=== PATIENT | female | born 1990 | race Caucasian/White ===

== ENCOUNTER 2016-08-11 00:01 | Inpatient (IN) | payer BC, OTHER ==
[2016-08-11] MEDS ORDERED: PITOCIN ONE (00:18)
[2016-08-11] MEDS ORDERED: D5LR 1000ML W PITOCIN 10 U/L 1,000 ML IV ONE (00:18)
[2016-08-11] MEDS ORDERED: FENTANYL INJ 100 mcg ONE (00:18)
[2016-08-11] MEDS ORDERED: D5 1/2 NS 1000ML W PITOCIN 20 U/L 1,000 ML IV ONE (00:19)
[2016-08-11] MEDS ORDERED: D5 1/2 NS 1000 ML 1,000 ML IV ONE (00:19)
[2016-08-11] MEDS ORDERED: NAROPIN EPIDURAL 0.2% + FENTANYL 90MCG 60 ML EPI ONE (00:19)
[2016-08-11] MEDS ORDERED: PITOCIN IVP ONE (00:36)
[2016-08-11] MEDS ORDERED: PHENERGAN INJ 25 MG IV PRN ×3 (00:36→06:16)
[2016-08-11] MEDS ORDERED: MORPHINE SULFATE INJ 2 MG IVP PRN (00:36)
[2016-08-11] MEDS ORDERED: PITOCIN 10 UNITS in D5 LR 1000 ML 1,000 ML IV PRN (00:36)
[2016-08-11] MEDS ORDERED: REGLAN INJ 10 MG VIAL IVP PRN ×2 (00:36→06:16)
[2016-08-11] MEDS ORDERED: NUBAIN INJ 200 MG VIAL MULTIDOSE IVP PRN (00:36)
[2016-08-11] MEDS ORDERED: D5 1/2 NS 1000 ML 1,000 ML IV SCH (01:00)
[2016-08-11 01:03] LABS: BASOPHILS # (AUTO) 0.1 X10^3/uL (0.0-0.1); BASOPHILS % (AUTO) 0.3 % (0.2-1.0); EOSINOPHILS # (AUTO) 0.5 x10^3/uL (0.0-0.2); EOSINOPHILS % (AUTO) 3.2 % (0.9-2.9); HEMATOCRIT 34.1 % (36.0-47.0); HEMOGLOBIN 11.4 g/dL (12.0-16.0); LYMPHOCYTES # (AUTO) 3.4 X10^3/uL (1.3-2.9); LYMPHOCYTES % (AUTO) 19.7 % (21.0-51.0); MEAN CORPUSCULAR HEMOGLOBIN 26.8 pg (27.0-34.0); MEAN CORPUSCULAR HGB CONC 33.4 g/dL (33.0-35.0); MEAN CORPUSCULAR VOLUME 80.4 fL (80.0-100.0); MEAN PLATELET VOLUME 7.7 fL (7.4-11.0); MONOCYTES # (AUTO) 1.2 x10^3/uL (0.3-0.8); MONOCYTES % (AUTO) 6.9 % (0.0-13.0); NEUTROPHILS # (AUTO) 11.9 x10^3/uL (2.2-4.8); NEUTROPHILS % (AUTO) 69.9 % (42.0-75.0); PLATELET COUNT 308 X10^3/uL (150.0-450.0); RED BLOOD COUNT 4.24 X10^6/uL (3.5-5.4); RED CELL DISTRIBUTION WIDTH 13.9 % (11.6-16.5)
[2016-08-11 01:10] LABS: BLOOD UREA NITROGEN 3 mg/dL (7-18); CALCIUM 8.3 mg/dL (8.5-10.1); CHLORIDE 105 mmol/L (98-107); CREATININE 0.65 mg/dL (0.55-1.02); GLUCOSE 102 mg/dL (65-99); SODIUM 139 mmol/L (136-145); eGFR BLACK RACES > 60 (>60); eGFR NON BLACK RACES > 60 (>60)
[2016-08-11] MEDS ORDERED: FENTANYL INJ 100 mcg EPI ONE (01:32)
[2016-08-11] MEDS ORDERED: LR 1000 ML IV 1,000 ML IV ONE (01:33)
[2016-08-11] MEDS ORDERED: NAROPIN EPIDURAL 0.2% 60 ML with FENTANYL INJ 100 mcg 90 MCG IVP SCH ×2 (02:00)
[2016-08-11] MEDS ORDERED: NUBAIN INJ 10 ONE (02:00)
[2016-08-11 03:04] LABS: BILIRUBIN,URINE NEGATIVE (NEGATIVE); BLOOD/HEMOGLOBIN,URINE 2+ (NEGATIVE); GLUCOSE, URINE NEGATIVE (NEGATIVE); KETONES,URINE NEGATIVE (NEGATIVE); LEUKOCYTE ESTERASE ,URINE NEGATIVE (NEGATIVE); NITRITES,URINE NEGATIVE (NEGATIVE); PROTEIN,URINE NEGATIVE (NEGATIVE); UROBILINOGEN,URINE NORMAL (NORMAL)
[2016-08-11 03:08] LABS: APPEARANCE,URINE CLEAR (CLEAR); COLOR,URINE YELLOW (YELLOW); SQUAMOUS EPITHELIAL CELL,UR RARE /HPF (NEGATIVE)
[2016-08-11 03:09] LABS: BACTERIA,URINE TRACE /HPF (NEGATIVE); CALCIUM OXALATE CRYSTALS,UR FEW /HPF (NEGATIVE)
--- NOTE | 2016-08-11 03:43 | DR.OB ---
OB Quick Note - Assessment/Plan Assessment/Plan: L&D 08/11/16 at 3:40am Pitocin=10mu/min. S-No complaint. s/p epidural. O-Afebrile,VSS [id number] with good LTV, +accel, no decel. CTX=q 1 1/2 to 2 min., about 45-55mmHg CVX=5cm/90%/-1 A-IUP at 38 2/7 weeks with SROM for induction P-Cont. pitocin induction Anticipate
[2016-08-11] MEDS ORDERED: MOTRIN TAB 800 MG PO PRN (05:29)
--- NOTE | 2016-08-11 05:29 | DR.OB ---
OB Quick Note - Assessment/Plan Assessment/Plan: Delivery Note STREET INSPECTOR 08/11/16 at 5:20am Patient complete and pushing. Head delivered over intact perineum. No nuchal cord. Nose and mouth bulb suctioned. Body delivered over intact perineum. Cord clamped x 2 and cut. handed to attendant. Cord sent for gases but cord noted to be short. Placenta delivered spontaneously / intact / 3 vessel cord. No CVX / vaginal / perineal tears. Viable female infant, VTX/OA, wt=7'14 " and 10/10, stable to NBN. Mother stable to RR. [id number].
[2016-08-11] MEDS ORDERED: D5 1/2 NS 1000 ML 1,000 ML with PITOCIN 20 UNITS IV SCH ×2 (06:00)
[2016-08-11] MEDS ORDERED: NAROPIN EPIDURAL 0.2% 60 ML with FENTANYL INJ 100 mcg 90 MCG EPI SCH ×2 (06:00)
[2016-08-11] MEDS ORDERED: DERMOPLAST SPRAY TOP PRN (06:16)
[2016-08-11] MEDS ORDERED: AMBIEN PO PRN (06:16)
[2016-08-11] MEDS ORDERED: ADACEL TDaP IM ONE (06:16)
[2016-08-11] MEDS ORDERED: MILK OF MAGNESIA PO PRN (06:16)
[2016-08-11] MEDS: PRENATAL PLUS PO SCH (08:25)
[2016-08-11] MEDS: ZANTAC PO SCH ×2 (08:26→21:23)
[2016-08-11] MEDS: MOTRIN TAB 800 MG PO PRN (13:13)
[2016-08-11] MEDS: D5 1/2 NS 1000 ML 1,000 ML with PITOCIN 20 UNITS IV SCH ×4 (14:37→22:36)
[2016-08-12] MEDS: MOTRIN TAB 800 MG PO PRN (03:00)
[2016-08-12 05:21] LABS: HEMATOCRIT 35.8 % (36.0-47.0); HEMOGLOBIN 11.6 g/dL (12.0-16.0)
[2016-08-12] MEDS: D5 1/2 NS 1000 ML 1,000 ML with PITOCIN 20 UNITS IV SCH ×2 (05:38)
[2016-08-12] MEDS ORDERED: DEPO-PROVERA CONTRACEPTIVE INJ IM ONE (07:34)
[2016-08-12] MEDS: PRENATAL PLUS PO SCH (08:20)
[2016-08-12] MEDS: ZANTAC PO SCH (08:20)
[2016-08-12 08:51] VITALS: BP 126/79
== END 2016-08-12 12:28 | disposition home or self-care (01) | DRG 775 ==
LOC: LD 00:01 → MED/SURG 05:30
PROVIDERS: ADMIT Specialist; ATTEND Specialist
PROC: 10E0XZZ Delivery of Products of Conception, External Approach (ICD-10-PCS; principal; 2016-08-11)
PROC: 00HU33Z Insertion of Infusion Device into Spinal Canal, Percutaneous Approach (ICD-10-PCS; 2016-08-11)
PROC: 3E0234Z Introduction of Serum, Toxoid and Vaccine into Muscle, Percutaneous Approach (ICD-10-PCS; 2016-08-11)
DX: O23.33 Infections of other parts of urinary tract in pregnancy, third trimester (principal); Z37.0 Single live birth; Z3A.38 38 weeks gestation of pregnancy; Z23 Encounter for immunization
CPT/HCPCS: 09167; 36415; 80048; 81001; 85014; 85018; 85025; 86592; 86850; 86900; 86901; A4216; A4222; S0197; J1050; J2300; J2590; J2765; J3010; J7042; J7120

== ENCOUNTER → 2017-03-16 | Outpatient (CLI) | payer BC ==
--- NOTE | 2017-03-16 15:46 | RAD ---
Examination: Left hand, three views History: Trauma Findings: There is a transverse undisplaced fracture involving the base of the distal phalanx, 4th fi nger. There is an additional oblique fracture involving the distal 2/3 set of the middle phalanx, taylor e digit. Joint spaces appear uninvolved. No gross displacement or deformity is noted. The expected so ft tissue swelling is present. Impression: Minimally-deforming fractures involving middle and distal phalanges, left 4th digit. Reported By:
== END | disposition home or self-care (01) | DRG 556 ==
LOC: RAD 15:14
PROVIDERS: ATTEND Nurse Practitioner Family
DX: M79.642 Pain in left hand (principal); S62.665A Nondisplaced fracture of distal phalanx of left ring finger, initial encounter for closed fracture; S62.655A Nondisplaced fracture of middle phalanx of left ring finger, initial encounter for closed fracture; X58.XXXA Exposure to other specified factors, initial encounter
CPT/HCPCS: 73130

== ENCOUNTER → 2017-03-26 | Outpatient (CLI) | payer BC ==
--- NOTE | 2017-03-26 10:57 | RAD ---
Examination: Left hand, three views History: Follow up fractures Comparison reference: 03/16/2017 Findings: Undisplaced fractures again noted involving the middle and distal phalanges of the 4th fing er. There is no evidence for callus formation, periosteal new bone or new deformity. Impression: Stable appearance of subacute fractures left 4th digit. Reported By:
== END ==
LOC: RAD 09:55
PROVIDERS: ATTEND Specialist
DX: S62.605A Fracture of unspecified phalanx of left ring finger, initial encounter for closed fracture (principal); X58.XXXA Exposure to other specified factors, initial encounter
CPT/HCPCS: 73130

== ENCOUNTER 2017-06-08 07:48 | Emergency (ER) | payer BC ==
[2017-06-08 07:56] VITALS: BP 116/75; BMI 23.0
--- NOTE | 2017-06-08 08:10 | DR.GENAD ---
HPI - PCP Primary Care Physician: keeley - HPI Comment HPI Comment: WORSE THIS AN. NAUSEATED AND HAVING PRESSURE IN THEBLADDER AREA. - Complaint/Symptoms Chief Complaint Doctors Comments: URINARY DISCOMFORT TIMES ONE DAY. Chief Complaint:: pt stated she has been having pelvic pain and trouble urinating since last night. has a iud inplace since last year. she stated it feels like a contraction. - Nurses notes reviewed Nurses Notes Review: Yes - Source History Provided: Patient - Mode of Arrival Mode of Arrival: Ambulatory - Timing Onset of Chief Complaint: 06/07/17 Came on: Suddenly (u) - Duration Duration: Constant Duration: Days - Severity Severity: Moderate PMH - PMH Past Medical History: No Past Medical History: Kidney Stones Past Surgical History: Yes Surgical History: Ortho Surgery - Family History History of Family Medical Conditions: Yes Family Medical History: [place], Hypertension - Social History Does patient currently use any type of tobacco product: No Have you used tobacco products in the last 12 months: No Type of Tobacco Use: None Does any household member use tobacco: No Alcohol Use: None Do you use any recreational Drugs:: No Lives With: Family Lives Where: Home - infectious screening In the last 2 months have you had wt loss of >10#?: NO Have you had fever, night sweats or hemotysis?: No Have you traveled outside the country in the last 6 months?: No Isolation: Standard ROS - Review of Systems Constitutional: No Symptoms Reported Eyes: No Symptoms Reported ENTM: No Symptoms Reported Respiratoy: No Symptoms Reported Cardiovascular: No Symptoms Reported Gastrointestinal/Abdominal: Abdominal Pain (BLADDERPRESSURE.), Nausea Genitourinary: Dysuria Neurological: No Symptoms Reported Musculoskeletal: No Symptoms Reported Integumentary: No Symptoms Reported Hematologic/Lymphatic: No Symptoms Reported Endocrine: No Symptoms Reported All Other Systems: Reviewed and Negative PE - Vital Signs Vitals: Temperature 98.3 F Pulse Rate 80 Respiratory Rate 16 Blood Pressure [Right Arm] 115/73 Blood Pressure [Left Arm] 126/79 Blood Pressure [Left Radial 133/76 Artery] Blood Pressure 116/75 O2 Sat by Pulse Oximetry 98 - General Limitations: No Limitations - Head Head Exam: Normal Inspection - Eyes Eye exam: Normal Appearance - ENT ENT Exam: Normal Exam External Ear Exam: Normal External Inspection TM/Canal Exam: Bilateral Normal Nose Exam: Normal Nose Exam Mouth Exam: Normal Inspection Throat Exam: Normal Inspection - Neck Neck Exam: Normal Inspection - Chest Chest Inspection: Symmetric Chest Wall Rise - Respiratory Respiratory Exam: Normal Lung Sounds Bilat Respiratory Exam: Bilateral Clear to Auscultation - Cardiovascular Cardiovascular Exam: Regular Rate, Normal Rhythm, Normal Heart Sounds - Abdominal Exam Abdominal Exam: Normal Bowel Sounds, Soft. negative: Tenderness - Extremities Extremities Exam: Normal Inspection - Back Back Exam: Normal Inspection - Neurologic Neurological Exam: Alert, Oriented X3 - Psychiatric Psychiatric Exam: Normal Affect, Normal Mood - Skin Skin Exam: Normal Color MDM - Differential Diagnosis Differential Diagnosis: UTI, KIDNEY STONE. Course - Treatment Treatment: SEE ORDERS. - Education/Counseling Education/Counseling: Patient, Education Educated On: Diagnosis, Needs for Follow Up ROR - Labs Reviewed Laboratory Results Reviewed?: Yes Result Diagrams: 06/08/17 09:07 06/08/17 09:07 Laboratory: 06/08/17 08:12 Urine,Clean Catch Urine Culture - Preliminary WBC 6.7 X10^3/uL (3.6-10.0) 06/08/17 09:07 RBC 5.20 X10^6/uL (3.5-5.4) 06/08/17 09:07 Hgb 15.8 g/dL (12.0-16.0) 06/08/17 09:07 Hct 45.2 % (36.0-47.0) 06/08/17 09:07 MCV 87.0 fL (80.0-100.0) 06/08/17 09:07 MCH 30.5 pg (27.0-34.0) 06/08/17 09:07 MCHC 35.0 g/dL (33.0-35.0) 06/08/17 09:07 RDW 12.6 % (11.6-16.5) 06/08/17 09:07 Plt Count 299 X10^3/uL (150.0-450.0) 06/08/17 09:07 MPV 8.0 fL (7.4-11.0) 06/08/17 09:07 Neut % 55.3 % (42.0-75.0) 06/08/17 09:07 Lymph % 33.0 % (21.0-51.0) 06/08/17 09:07 [place] % 7.6 % (0.0-13.0) 06/08/17 09:07 Eos % 3.7 % (0.9-2.9) H 06/08/17 09:07 Baso % 0.4 % (0.2-1.0) 06/08/17 09:07 Neut # 3.7 x10^3/uL (2.2-4.8) 06/08/17 09:07 Lymph # 2.2 X10^3/uL (1.3-2.9) 06/08/17 09:07 [place] # 0.5 x10^3/uL (0.3-0.8) 06/08/17 09:07 Eos # 0.2 x10^3/uL (0.0-0.2) 06/08/17 09:07 Baso # 0.0 X10^3/uL (0.0-0.1) 06/08/17 09:07 Absolute Nucleated RBC 0.0 /100WBC 06/08/17 09:07 Sodium 139 mmol/L (136-145) 06/08/17 09:07 Corrected Sodium TNP 06/08/17 09:07 Potassium 4.2 mmol/L (3.5-5.1) 06/08/17 09:07 Chloride 104 mmol/L (98-107) 06/08/17 09:07 Carbon Dioxide 29.3 mmol/L (21-32) 06/08/17 09:07 BUN 9 mg/dL (7-18) 06/08/17 09:07 Creatinine 0.80 mg/dL (0.55-1.02) 06/08/17 09:07 Est GFR (MDRD) Af Amer > 60 (>60) 06/08/17 09:07 Est GFR (MDRD) Non-Af > 60 (>60) 06/08/17 09:07 Glucose 83 mg/dL (65-99) 06/08/17 09:07 Calcium 9.5 mg/dL (8.5-10.1) 06/08/17 09:07 HCG, Qual Negative <10 mIU/mL 06/08/17 09:07 Specimen Type Clean catch urine 06/08/17 08:12 Urine Color [place] (YELLOW) 06/08/17 08:12 Urine Appearance Hazy (CLEAR) 06/08/17 08:12 Urine pH 6.0 (5.0 - 8.0) 06/08/17 08:12 Ur Specific [place] 1.020 (1.000-1.030) 06/08/17 08:12 Urine Protein 2+ (NEGATIVE) 06/08/17 08:12 Urine Glucose (UA) Negative (NEGATIVE) 06/08/17 08:12 Urine Ketones Negative (NEGATIVE) 06/08/17 08:12 Urine Occult Blood 5+ (NEGATIVE) 06/08/17 08:12 Urine Nitrite Positive (NEGATIVE) 06/08/17 08:12 Urine Bilirubin Negative (NEGATIVE) 06/08/17 08:12 Urine Urobilinogen 1+ (NORMAL) 06/08/17 08:12 Ur Leukocyte Esterase 1+ (NEGATIVE) 06/08/17 08:12 Urine RBC Tntc /HPF (NEGATIVE) 06/08/17 08:12 Urine WBC 0-3 /HPF (NEGATIVE) 06/08/17 08:12 Ur Squamous Epith Cells Few /HPF (NEGATIVE) 06/08/17 08:12 Urine Bacteria Trace /HPF (NEGATIVE) 06/08/17 08:12 Urine Mucus Many /HPF (NEGATIVE) 06/08/17 08:12 Ur Culture Indicated? Yes/culture set up 06/08/17 08:12 - XRAY XRAY Findings: REPORT DISCUSS WITH PATIENT. - Diagnosis Discharge Problem: Kidney stone UTI (urinary tract infection) Qualifiers: Urinary tract infection type: urethritis Qualified Code(s): N34.2 - Other urethritis - Discharge Plan Disposition: HOME, SELF-CARE Condition: Stable Prescriptions: Hydrocodone-Acet 5 mg/325 mg [Higgins 5/325 mg Tab] 1 tab PO Q6H PRN #15 tab PRN Reason: Pain Ondansetron [Zofran ODT 8 mg] 8 mg PO Q8H PRN #12 tab PRN Reason: Nausea/Vomiting Sulfamethoxazole-Trimethoprim [BACTRIM DS TAB 800/160 MG *] 1 tab PO BID #20 tab Tamsulosin HCl [Flomax] 0.4 mg PO DAILY #30 cap - Follow ups/Referrals Follow ups/Referrals: ALEX LUU [Primary Care Provider] - 3 days PAULINE OCAMPO [CONSULTING PHYSICIAN] - 2 days - Instructions Instructions: Hematuria, Pediatric, Abdominal Pain, Adult, [id number], Urinary Tract Infection, Adult
[2017-06-08 08:31] LABS: BILIRUBIN,URINE NEGATIVE (NEGATIVE); BLOOD/HEMOGLOBIN,URINE 5+ (NEGATIVE); GLUCOSE, URINE NEGATIVE (NEGATIVE); KETONES,URINE NEGATIVE (NEGATIVE); LEUKOCYTE ESTERASE ,URINE 1+ (NEGATIVE); NITRITES,URINE POSITIVE (NEGATIVE); PROTEIN,URINE 2+ (NEGATIVE); UROBILINOGEN,URINE 1+ (NORMAL)
[2017-06-08 08:47] LABS: APPEARANCE,URINE HAZY (CLEAR); COLOR,URINE AMBER (YELLOW)
[2017-06-08 08:48] LABS: BACTERIA,URINE TRACE /HPF (NEGATIVE); MUCUS,URINE MANY /HPF (NEGATIVE); RBC,URINE TNTC /HPF (NEGATIVE); SQUAMOUS EPITHELIAL CELL,UR FEW /HPF (NEGATIVE)
[2017-06-08] MEDS ORDERED: NS 1000 ML 1,000 ML ONE (09:05)
[2017-06-08] MEDS ORDERED: TORADOL 30 MG VIAL ONE (09:06)
[2017-06-08] MEDS ORDERED: ZOFRAN INJ 4 MG VIAL ONE (09:06)
[2017-06-08] MEDS ORDERED: NS 1000 ML 1,000 ML IV ONE (09:14)
[2017-06-08] MEDS ORDERED: ZOFRAN INJ 4 MG VIAL IVP ONE (09:14)
[2017-06-08] MEDS ORDERED: TORADOL 30 MG VIAL IVP ONE (09:14)
[2017-06-08 09:21] LABS: BASOPHILS % (AUTO) 0.4 % (0.2-1.0); EOSINOPHILS # (AUTO) 0.2 x10^3/uL (0.0-0.2); EOSINOPHILS % (AUTO) 3.7 % (0.9-2.9); HEMATOCRIT 45.2 % (36.0-47.0); HEMOGLOBIN 15.8 g/dL (12.0-16.0); LYMPHOCYTES # (AUTO) 2.2 X10^3/uL (1.3-2.9); MEAN CORPUSCULAR HEMOGLOBIN 30.5 pg (27.0-34.0); MONOCYTES # (AUTO) 0.5 x10^3/uL (0.3-0.8); MONOCYTES % (AUTO) 7.6 % (0.0-13.0); NEUTROPHILS # (AUTO) 3.7 x10^3/uL (2.2-4.8); NEUTROPHILS % (AUTO) 55.3 % (42.0-75.0); PLATELET COUNT 299 X10^3/uL (150.0-450.0); RED CELL DISTRIBUTION WIDTH 12.6 % (11.6-16.5); WHITE BLOOD COUNT 6.7 X10^3/uL (3.6-10.0)
[2017-06-08 09:25] LABS: BLOOD UREA NITROGEN 9 mg/dL (7-18); CALCIUM 9.5 mg/dL (8.5-10.1); CARBON DIOXIDE 29.3 mmol/L (21-32); CHLORIDE 104 mmol/L (98-107); SODIUM 139 mmol/L (136-145); eGFR BLACK RACES > 60 (>60); eGFR NON BLACK RACES > 60 (>60)
[2017-06-08 09:39] LABS: SERUM PREGNANCY TEST, QUAL NEGATIVE <10 mIU/mL
--- NOTE | 2017-06-08 10:59 | CT ---
HISTORY: Pelvic pain, blood in urine Study: CT abdomen and pelvis without IV or oral contrast Comparison: No priors Technique: Multiple axial images of the abdomen and pelvis were obtained from the lung bases to the pubic symphy sis without the administration of IV or oral contrast. Coronal and sagittal images are also reviewed . Dose reduction techniques utilized automatic exposure control. Findings: The visualized portions of the lung bases are unremarkable. The liver, spleen, pancreas, and adrenal glands are unremarkable in their CT appearance. The gallbladder is unremarkable in its CT appearance . Multiple bilateral kidney stones are present. The largest stone is present on the left measuring 4. 7 mm. No evidence of obstruction is seen. There is a 3.9 mm stone present within the urinary bladder on the right near the trigone which appears to have been recently passed. No significant mesenteric lymphadenopathy or stranding can be observed. No free fluid or free air is seen within the abdomen. No bowel wall thickening or bowel dilatation is present. The colon is unremarkable. Specifically, there is no diverticulosis noted within the sigmoid colon. Metallic IUD is present within a normal-si zed uterus. No adnexal mass or free cul-de-sac fluid is seen. The bony structures are grossly intact. IMPRESSION: Bilateral nonobstructing kidney stones. 3.9 mm stone present within the urinary bladder on the right near the trigone. This appears to have b een recently passed. Reported By:
== END 2017-06-08 11:14 | disposition home or self-care (01) ==
LOC: ER 07:59
DX: N20.0 Calculus of kidney (principal); N34.2 Other urethritis; R10.84 Generalized abdominal pain
CPT/HCPCS: 36415; 74176; 80048; 81001; 84703; 85025; 87086; 96365; 96374; 96375; 99282; 99283; A4222; J1885; J2405